=== PATIENT | female | born 1955 | race Caucasian/White ===

== ENCOUNTER 2023-09-10 09:43 | Outpatient (AMB) | payer MEDICARE, MEDICAID, SELFPAY ==
[2023-09-10 09:51] VITALS: BP 120/60; PULSE 58; TEMP 36.2; O2SAT 95; BMI 33.8
--- NOTE | 2023-09-10 09:51 | MHC.OFFWIV ---
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) Intake Note: pt is here today for rash under breast started 9 days ago Patient Tobacco Use Status: Former Tobacco user Allergies amoxicillin Allergy (Mild, Verified 09/10/23 09:57) Hives ibuprofen Allergy (Mild, Verified 09/10/23 09:57) Hives Penicillins Allergy (Mild, Verified 09/10/23 09:57) Hives Medication List - Last Reconciled 09/10/23 by KELVIN Whitehead albuterol sulfate 90 mcg/actuation 2 puffs inhalation Q4H PRN alendronate 70 mg PO QWEEK amlodipine 10 mg PO DAILY clopidogrel 75 mg PO DAILY clotrimazole-betamethasone 1-0.05 % 1 appl topical BID doxycycline hyclate 100 mg PO BID fluconazole 150 mg PO Q3D 2 doses furosemide 20 mg PO BID lisinopril 20 mg PO DAILY rosuvastatin 20 mg PO BEDTIME Do you need a note to return to daycare/school/sports/work: No HPI HPI Comments History of Present Illness Details 67-year-old female presents with by lateral erythematous pruritic rash inferior to her breast bilaterally PFSH Social History Patient Tobacco Use Status: Former Tobacco user Review of Systems Const All systems reviewed & are unremarkable except as noted in HPI and below Skin/Breast Reports erythema and Reports rash Physical Exam Vital Signs: Last Vital Signs Temp 97.1 F 09/10/23 09:51 Pulse 58 09/10/23 09:51 BP 120/60 09/10/23 09:51 Pulse Ox 95 09/10/23 09:51 Oxygen Delivery Method Room Air 09/10/23 09:51 BMI result Body Mass Index 33.8 Skin General skin exam: erythema Rashes: rashes noted (Inferior to her breast bilaterally) Assessment & Plan Assessment & Plan (1) Candidiasis: Code(s): B37.9 - Candidiasis, unspecified Plan: The patient will take dilfucan and apply clotrimazole BID for 2 weeks Plan see plan Medications: New fluconazole may repeat second dose 72 hrs after first dose if symptoms persist 150 mg PO Q3D 2 tabs 0RF 2 doses clotrimazole-betamethasone 1-0.05 % 1 appl topical BID 45 grams 0RF Coding Level of Care Code Est Pt Level 3 (75141) Diagnoses Candidiasis B37.9
== END 2023-09-10 10:42 | disposition home or self-care (01) ==
PROVIDERS: Visit Provider Physician Assistant Medical
DX: B37.9 Candidiasis, unspecified (principal)
CPT/HCPCS: 99213

== ENCOUNTER 2023-11-08 10:37 | Outpatient (AMB) | payer MEDICARE, MEDICAID, SELFPAY ==
--- NOTE | 2023-11-08 10:40 | AM.OFFWIN_ITS ---
Intake Vital Signs 3 11/08/23 10:41 Height 5 ft Weight 173 lb BMI 33.8 BP 132/60 Blood Pressure Location Lt brachial Position Sitting Pulse 63 Pulse Source Pulse Oximeter Temp 97.8 F Temp Source Oral Pulse Oximetry (%) 98 Oxygen Delivery Method Room Air Intake Visit Reasons: EP Rash legs and butt Intake Note: pt here c/o rash on legs and buttocks. Started Saturday Patient Tobacco Use Status: Former Tobacco user Allergies amoxicillin Allergy (Mild, Verified 11/08/23 10:40) Hives ibuprofen Allergy (Mild, Verified 11/08/23 10:40) Hives Penicillins Allergy (Mild, Verified 11/08/23 10:40) Hives Do you need a note to return to daycare/school/sports/work: No HPI HPI Comments 2 History of Present Illness0 Details 67 y/o female patient who presents to [facility] walk in clinic with c/o rash on her body. Reports rash on the back of the elbows, torso, buttocks and lower legs. Describes the rash as very itchy, dry and burning sometimes. She noticed the rash ~ a week ago. She was seen at the [facility] 09/10/2023 and diagnosed with Candidiasis of the skin under breasts, which resolved with Fluconazole Oral and topical cream. PFSH Social History Patient Tobacco Use Status: Former Tobacco user Review of Systems Const All systems reviewed & are unremarkable except as noted in HPI and below Physical Exam Vital Signs: Last Vital Signs Temp 97.8 F 11/08/23 10:41 Pulse 63 11/08/23 10:41 BP 132/60 11/08/23 10:41 Pulse Ox 98 11/08/23 10:41 Oxygen Delivery Method Room Air 11/08/23 10:41 BMI result Body Mass Index 33.8 Const General: comfortable and no acute distress Nutritional Appearance: obese Orientation/consciousness: patient oriented x3 Skin Rashes: rashes noted Full body images: 2 1. Erythematous scaly patches of plaques, thick, dry silvery in color. 2. Erythematous scaly patches of plaques, thick, dry silvery in color. 3. Erythematous scaly patches of plaques, thick, dry silvery in color. 4. Erythematous scaly patches of plaques, thick, dry silvery in color. Neuro General: patient oriented x3 Assessment & Plan Assessment & Plan (1) Rash and nonspecific skin eruption: Code(s): R21 - Rash and other nonspecific skin eruption Plan: DDx's: Eczema vs fungal vs psoriasis. Ordered Clobetasol BID for 14 days, then skip 7 days. May resume treatment if still symptomatic. Advised to f/u with PCP. Called [facility], unfortunately they do not take Patient's insurance. Pt unable to cover the remaining cost. Medications: New 2 clobetasol 0.05% APPLY A THIN LAYER TO THE AFFECTED SKIN TWICE A DAY FOR 14 DAYS, THEN SKIP 1 WEEK. MAY CONTINUE FOR THE NEXT 14 DAYS IF STILL SYMPTOMATIC. 1 appl topical BID 60 grams 2RF 2 weeks R21 - Rash and other nonspecific skin eruption Coding Level of Care Code Est Pt Level 3 (53468) Diagnoses Rash and nonspecific skin eruption R21 Time Spent (min) 15
[2023-11-08 10:41] VITALS: BP 132/60; PULSE 63; TEMP 36.6; O2SAT 98; BMI 33.8
== END 2023-11-08 11:41 | disposition home or self-care (01) ==
PROVIDERS: Visit Provider Nurse Practitioner Family
DX: R21 Rash and other nonspecific skin eruption (principal)
CPT/HCPCS: 99213

== ENCOUNTER 2024-01-21 09:18 | Outpatient (AMB) | payer OTHER, MEDICARE, MEDICAID, SELFPAY ==
[2024-01-21 09:20] VITALS: BP 140/72; PULSE 81; TEMP 36.1; O2SAT 95; BMI 33.3
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
== END 2024-01-21 10:01 | disposition home or self-care (01) ==
PROVIDERS: Visit Provider Physician Assistant
DX: M54.2 Cervicalgia (principal); S13.4XXA Sprain of ligaments of cervical spine, initial encounter; V89.2XXA Person injured in unspecified motor-vehicle accident, traffic, initial encounter; Z04.3 Encounter for examination and observation following other accident

== ENCOUNTER 2024-01-31 10:00 | Outpatient (AMB) | payer OTHER, MEDICARE, MEDICAID, SELFPAY ==
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
[2024-01-31 10:03] VITALS: BP 130/70; PULSE 58; O2SAT 98; BMI 33.6
== END 2024-01-31 11:26 | disposition home or self-care (01) ==
PROVIDERS: Visit Provider Physician Assistant Medical
DX: M62.830 Muscle spasm of back (principal)

== ENCOUNTER → 2024-01-31 10:00 | Outpatient (BNVA) | payer OTHER, MEDICARE, MEDICAID, SELFPAY | PROVIDERS: Visit Provider Physician Assistant Medical ==

== ENCOUNTER 2024-01-31 10:21 | Outpatient (REF) | payer OTHER, MEDICARE, MEDICAID, SELFPAY ==
--- NOTE | ~2024-01-31 | XR_ITS ---
EXAMINATION: XR LUMBOSACRAL SPINE 3 VIEWS CLINICAL INFORMATION: Low back pain, unspecified M54.50. COMPARISON: None available TECHNIQUE: Three views of the lumbosacral spine. FINDINGS: There is a transitional fifth lumbar vertebral body with sacralization. The vertebral bodies demonstrate normal height and alignment. Degenerative changes with disc space narrowing and osteophyte formation is seen at the L3/4 and L4/5. Posterior facet joint arthropathy is seen from L3 through L5. . The paraspinal soft tissues are normal. XR/XR lumbar spine 2-3V IMPRESSION: Degenerative disc disease and posterior facet joint arthropathy as described above. Electronically signed by: Thuan Luu MD 04/07/2024 11:00 AM EST
== END 2024-01-31 10:22 | disposition home or self-care (01) ==
LOC: HO.HMGCX 10:21
PROVIDERS: Visit Provider Physician Assistant Medical
DX: M54.50 Low back pain, unspecified (principal); M62.830 Muscle spasm of back
CPT/HCPCS: 72100